=== PATIENT | female | born 1960 ===

== ENCOUNTER 2020-11-14 05:38 | Day surgery (SDC) | payer OTHER ==
[~2020-11-14 05:38] MED LIST: DAILY MULTIPLE1 EAC2 PO
[2020-11-14] MEDS ORDERED: MORGIDOX100 MG PO (08:33)
[2020-11-14] MEDS ORDERED: NAPR500T14 PO (08:33)
== END 2020-11-14 14:00 | disposition home or self-care (01) ==
LOC: CIR.AMB 05:38
PROVIDERS: ATTEND Obstetrics & Gynecology
DX: N84.0 Polyp of corpus uteri (principal); Z20.828 Contact with and (suspected) exposure to other viral communicable diseases